=== PATIENT | female | born 1965 | race Caucasian/White ===

== ENCOUNTER → 2016-07-15 | Outpatient (CLI) | payer OTHER | LOC: MC.RAD 10:51 | DX: Z12.31 Encounter for screening mammogram for malignant neoplasm of breast (principal); D24.2 Benign neoplasm of left breast; D24.1 Benign neoplasm of right breast ==

== ENCOUNTER → 2017-07-28 | Outpatient (CLI) | payer OTHER | LOC: MC.RAD 10:36 | DX: Z12.31 Encounter for screening mammogram for malignant neoplasm of breast (principal); Z98.82 Breast implant status ==

== ENCOUNTER → 2017-10-24 | Outpatient (CLI) | payer OTHER ==
[2017-10-24 16:29] LABS: ALBUMIN 4.3 gm/dL (3.5-5.0); CALCIUM 9.5 mg/dL (8.4-10.2); CREATININE, serum 0.73 mg/dL (0.52-1.25); PHOSPHOROUS 4.3 mg/dL (2.5-4.5); POTASSIUM 4.1 mmol/L (3.4-5.0)
== END ==
LOC: COL.LAB 15:38
PROVIDERS: Family Medicine
DX: R20.0 Anesthesia of skin (principal)